=== PATIENT | male | born 1985 | race Caucasian/White ===

== ENCOUNTER 2016-12-24 13:22 | Emergency (ER) | payer OTHER ==
[~2016-12-24] VITALS: Ht 180.3 cm; Wt 114.3 kg
[~2016-12-24 13:22] MED LIST: BACTRIM,SEPT1 TABLET PO; DILAUDID2 MG PO; DILAUDID4 MG PO; ENDOCET 5-3251 EACH PO; FENOFIBRATE145 M1 PO; FENOFIBRATE160 M1 PO; HYDROCODON-ACE1 EACH; IBUPROFEN400 MG PO; INDOCIN25 MG PO; KEFLEX500 MG PO; METHYLPREDNISOLO4 M1; MOTRIN800 MG PO; NAPROSYN500 MG PO; NICOTINE PATCH1 EAC1 TD; NICOTINE PATCH1 EAC2 TD; NOHOMEMEDS; NORCO 10/3251 TABLET PO; OXYCODONE HCL5 MG PO; PEN-VEE K,VEET250 MG PO; PERCOCET 5/31 TABLET PO; PRAVACHOL40 MG PO; PROTONIX40 MG PO; SUCRALFATE1 GM/10 ML PO; TRANSDERM-SCO1 PATCH TD; TYLENOL WITH C1 EACH PO; ZOFRAN ODT4 MG PO
[2016-12-24 14:09] LABS: MCH 30.4 PG (29.0-34.0); MCHC 34.8 G/DL (30.0-36.0); MCV 87.5 FL (86-99); MEAN PLAT.VOLUME 11.3 uM^3 (9.0-12.4); PLATELET COUNT 108 K/uL (156-360); RBC DIS.WIDTH-SD 40.9 % (39-53); RED BLOOD COUNT 5.03 M/uL (4.00-5.50); WHITE BLOOD COUNT 10.9 K/uL (4.1-10.2)
[2016-12-24 14:19] LABS: CHLORIDE 102 mEq/L (99-109); POTASSIUM 3.9 mEq/L (3.7-5.4); SODIUM 138 mEq/L (136-147)
[2016-12-24 14:21] LABS: GLUCOSE 99 mg/dL (70-99)
[2016-12-24 14:22] LABS: ANION GAP 12 MEQ/L (2-14)
[2016-12-24 14:23] LABS: TOTAL BILIRUBIN 1.1 mg/dL (0.0-1.0)
[2016-12-24 14:25] LABS: ALKALINE PHOSPHATASE 92 IU/L (3-129); GFR ESTIMATE (CALCULATED) > 59 mL/min/
[2016-12-24 14:26] LABS: UREA NITROGEN (BUN) 11 mg/dL (9-23)
[2016-12-24 14:28] LABS: LIPASE 26 U/L (1.0-51.0)
[2016-12-24 18:55] LABS: ADD MIUA? YES; BILIRUBIN NEGATIVE; BLOOD NEGATIVE; COLOR DK YELLOW ((YELLOW)); GLUCOSE (STRIP) NEGATIVE; KETONES NEGATIVE; LEUKOCYTES NEGATIVE; NITRITE NEGATIVE; PH, URINE 5.5 (5-8); PROTEIN (STRIP) NEGATIVE; SPECIFIC GRAVITY 1.024 (1.000-1.030); UROBILINOGEN 0.2 MG/DL (0.2-1.0)
[2016-12-24 19:05] LABS: BACTERIA NONE SEEN /HPF; EPITHELIAL CELLS NONE SEEN /HPF; HYALINE CASTS 0-5 /LPF; MUCUS 4+ /LPF; RED BLOOD CELLS 0-5 /HPF (0-5); UCUL ADDED? NO; WHITE BLOOD CELLS 0-5 /HPF (0-5)
[2016-12-24] MEDS ORDERED: BENTYL20 MG PO (20:38)
[2016-12-24] MEDS ORDERED: PHENERGAN25 MG PR (20:38)
[2016-12-24] MEDS ORDERED: REGLAN10 MG PO (20:46)
[2016-12-24 21:50] VITALS: BP 112/78
== END 2016-12-24 21:51 | disposition home or self-care (01) ==
LOC: EME 13:22
DX: R10.13 Epigastric pain (principal); K85.90 Acute pancreatitis without necrosis or infection, unspecified; R11.0 Nausea; Z87.891 Personal history of nicotine dependence
CPT/HCPCS: 76705; 80053; 81003; 83690; 85027; 99281; 99285; J1885; J2405; J2765; J3010; J7030

== ENCOUNTER → 2017-01-02 | Outpatient (CLI) | payer OTHER ==
[~2017-01-02] VITALS: Ht 182.9 cm; Wt 108.9 kg
[~2017-01-02] MED LIST changes: +BENTYL20 MG PO; +PHENERGAN25 MG PR; +REGLAN10 MG PO
== END | disposition home or self-care (01) ==
LOC: AMB 10:26
DX: K52.9 Noninfective gastroenteritis and colitis, unspecified (principal); K51.40 Inflammatory polyps of colon without complications; K51.014 Ulcerative (chronic) pancolitis with abscess; B96.81 Helicobacter pylori [H. pylori] as the cause of diseases classified elsewhere; K51.814 Other ulcerative colitis with abscess; R10.30 Lower abdominal pain, unspecified; Z93.3 Colostomy status; E78.5 Hyperlipidemia, unspecified; K86.1 Other chronic pancreatitis; E55.9 Vitamin D deficiency, unspecified; Z83.3 Family history of diabetes mellitus; Z87.891 Personal history of nicotine dependence; Z88.5 Allergy status to narcotic agent
CPT/HCPCS: 88305; J2250; J3010

== ENCOUNTER 2017-06-15 17:45 | Inpatient (IN) | payer OTHER ==
[~2017-06-15] VITALS: Ht 180.3 cm; Wt 119.5 kg
[2017-06-15 18:46] LABS: EOSINOPHIL (%) 0.7 % (0-5); EOSINOPHIL COUNT 0.1 K/uL (0-0.3); HEMATOCRIT 41.2 % (38.0-50.0); IMMATURE GRANULOCYTE (%) 0.3 % (0.0-0.7); INSTRUMENT ABS NEUTROPHIL CT 11.7 K/uL; LYMPHOCYTE COUNT 1.2 K/uL (1.0-2.8); MCH 31.6 PG (29.0-34.0); MCHC 36.7 G/DL (30.0-36.0); MCV 86.2 FL (86-99); MEAN PLAT.VOLUME 12.6 uM^3 (9.0-12.4); MONOCYTE (%) 4.8 % (3-12); MONOCYTE COUNT 0.7 K/uL (0-0.8); NEUTROPHIL (%) 85.1 % (45-76); NEUTROPHIL COUNT 11.7 K/uL (1.8-6.4); PLATELET COUNT 123 K/uL (156-360); RBC DIS.WIDTH-CV 12.3 % (11.8-14.6); RBC DIS.WIDTH-SD 38.9 % (39-53); RED BLOOD COUNT 4.78 M/uL (4.00-5.50); WHITE BLOOD COUNT 13.8 K/uL (4.1-10.2)
[2017-06-15 19:35] LABS: CHLORIDE 105 mEq/L (99-109); POTASSIUM 4.2 mEq/L (3.7-5.4); SODIUM 137 mEq/L (136-147)
[2017-06-15 19:37] LABS: GLUCOSE 117 mg/dL (70-99)
[2017-06-15 19:38] LABS: ANION GAP 12 MEQ/L (2-14)
[2017-06-15 19:39] LABS: TOTAL BILIRUBIN 0.7 mg/dL (0.0-1.0)
[2017-06-15 19:40] LABS: ALKALINE PHOSPHATASE 80 IU/L (3-129)
[2017-06-15 19:41] LABS: GFR ESTIMATE (CALCULATED) > 59 mL/min/
[2017-06-15 19:42] LABS: UREA NITROGEN (BUN) 13 mg/dL (9-23)
[2017-06-15 19:44] LABS: LIPASE 58 U/L (1.0-51.0)
[2017-06-15 20:45] LABS: ADD MIUA? NO; BILIRUBIN NEGATIVE; BLOOD NEGATIVE; COLOR YELLOW ((YELLOW)); GLUCOSE (STRIP) NEGATIVE; KETONES NEGATIVE; LEUKOCYTES NEGATIVE; NITRITE NEGATIVE; PROTEIN (STRIP) NEGATIVE; SPECIFIC GRAVITY 1.029 (1.000-1.030); UCUL ADDED? NO; UROBILINOGEN 0.2 MG/DL (0.2-1.0)
[2017-06-16] VITALS (7 sets, daily range): BP systolic 122–141; BP diastolic 65–84
[2017-06-16 06:47] LABS: HEMATOCRIT 39.2 % (38.0-50.0); MCH 30.6 PG (29.0-34.0); MCHC 34.9 G/DL (30.0-36.0); MCV 87.5 FL (86-99); MEAN PLAT.VOLUME 12.6 uM^3 (9.0-12.4); PLATELET COUNT 105 K/uL (156-360); RBC DIS.WIDTH-CV 12.8 % (11.8-14.6); RBC DIS.WIDTH-SD 40.6 % (39-53); RED BLOOD COUNT 4.48 M/uL (4.00-5.50); WHITE BLOOD COUNT 12.6 K/uL (4.1-10.2)
[2017-06-16 07:09] LABS: HDL CHOLESTEROL 21 MG/DL (Desirable>=40); NON-HDL CHOLESTEROL 151 mg/dL (Desirable<160); TOTAL CHOLESTEROL 172 mg/dL (Desirable<200); TRIGLYCERIDES 651 MG/DL (Normal: <150)
[2017-06-16 07:10] LABS: ANION GAP 6 MEQ/L (2-14); CHLORIDE 103 MEQ/L (99-109); GFR ESTIMATE (CALCULATED) > 59 mL/min/; GLUCOSE 97 mg/dL (70-99); POTASSIUM 3.9 MEQ/L (3.7-5.4); SAMPLE HEMOLYSIS CHECK 1; SAMPLE ICTERIC CHECK 0; SAMPLE LIPEMIA CHECK 1; SODIUM 135 MEQ/L (136-147); UREA NITROGEN (BUN) 9 mg/dL (9-23)
[2017-06-17 03:46] VITALS: BP 128/84
[2017-06-17 08:15] VITALS: BP 132/73
[2017-06-17 14:55] VITALS: BP 142/75
[2017-06-17 23:23] VITALS: BP 130/79
[2017-06-18 08:47] VITALS: BP 114/70
[2017-06-18] MEDS ORDERED: ENDOCET 5-3251 EACH PO (12:06)
== END 2017-06-18 12:38 | disposition home or self-care (01) | DRG 440 ==
LOC: EME 17:45 → 2EAST 22:37 → EDOF 22:37 → ENRESERV 22:39 → 2EAST 06-16 00:16
PROVIDERS: Hospitalist; Physician Assistant Medical
DX: K85.90 Acute pancreatitis without necrosis or infection, unspecified (principal); R63.0 Anorexia; Z87.891 Personal history of nicotine dependence; E78.1 Pure hyperglyceridemia; K86.1 Other chronic pancreatitis; G89.29 Other chronic pain; M54.5 Low back pain; Z91.19 Patient's noncompliance with other medical treatment and regimen; Z86.73 Personal history of transient ischemic attack (TIA), and cerebral infarction without residual deficits; Z68.36 Body mass index [BMI] 36.0-36.9, adult
CPT/HCPCS: 74177; 80048; 80053; 80061; 81003; 83605; 83690; 85025; 85027; 99281; 99285; J1170; J1650; J1885; J2270; J2405; J3010; J7030; J7040; S0028

== ENCOUNTER 2018-03-03 06:40 | Inpatient (IN) | payer OTHER ==
[~2018-03-03] VITALS: Ht 182.9 cm; Wt 121.0 kg
[2018-03-03 07:43] LABS: HEMATOCRIT 41.3 % (38.0-50.0); HEMOGLOBIN 15.8 G/DL (12.5-16.6); MCH 32.4 PG (29.0-34.0); MCHC 38.3 G/DL (30.0-36.0); MCV 84.8 FL (86-99); PLATELET COUNT 168 K/uL (156-360); RBC DIS.WIDTH-CV 13.3 % (11.8-14.6); RBC DIS.WIDTH-SD 41.1 % (39-53); RED BLOOD COUNT 4.87 M/uL (4.00-5.50); WHITE BLOOD COUNT 12.5 K/uL (4.1-10.2)
[2018-03-03 09:38] LABS: APPEARANCE CLEAR ((CLEAR)); BILIRUBIN NEGATIVE; BLOOD NEGATIVE; COLOR YELLOW ((YELLOW)); GLUCOSE (STRIP) NEGATIVE; KETONES NEGATIVE; LEUKOCYTES NEGATIVE; NITRITE NEGATIVE; PROTEIN (STRIP) NEGATIVE; SPECIFIC GRAVITY 1.041 (1.000-1.030); UCUL ADDED? NO; UROBILINOGEN 0.2 MG/DL (0.2-1.0)
[2018-03-03 10:02] LABS: ALBUMIN 4.6 G/DL (3.2-4.8); ALKALINE PHOSPHATASE 59 IU/L (3-129); ALT (GPT) 27 IU/L (3-49); CHLORIDE 101 MEQ/L (99-109); CREATININE 1.1 MG/DL (0.6-1.3); GFR ESTIMATE (CALCULATED) > 59 mL/min/ (58.99-99999); GLUCOSE 100 mg/dL (70-99); LIPASE 104 U/L (1.0-51.0); SODIUM 129 MEQ/L (136-147); TOTAL BILIRUBIN 0.7 MG/DL (0.0-1.0); TOTAL PROTEIN 7.3 G/DL (6.4-8.3); UREA NITROGEN (BUN) 12 mg/dL (9-23)
[2018-03-03 10:04] LABS: POTASSIUM 7.4 MEQ/L (3.7-5.4)
[2018-03-03 10:05] LABS: AST (GOT) 71 IU/L (2-34)
[2018-03-03] MEDS ORDERED: ZOFRAN8 MG PO (11:48)
[2018-03-03] MEDS ORDERED: TIGER BALM MUSC57 GM TP (11:49)
[2018-03-03 12:33] LABS: HDL CHOLESTEROL 17 MG/DL (Desirable>=40); NON-HDL CHOLESTEROL 345 mg/dL (Desirable<160); TOTAL CHOLESTEROL 362 mg/dL (Desirable<200); TRIGLYCERIDES 2506 MG/DL (Normal: <150)
[2018-03-03 12:48] VITALS: BP 133/80
[2018-03-03 17:13] VITALS: BP 131/78
[2018-03-03 19:38] VITALS: BP 126/70
[2018-03-03 23:19] VITALS: BP 135/75
[2018-03-04 03:57] VITALS: BP 131/76
[2018-03-04 06:32] LABS: HEMATOCRIT 40.3 % (38.0-50.0); MCH 29.6 PG (29.0-34.0); MCHC 34.2 G/DL (30.0-36.0); MCV 86.5 FL (86-99); PLATELET COUNT 122 K/uL (156-360); RBC DIS.WIDTH-CV 13.4 % (11.8-14.6); RBC DIS.WIDTH-SD 42.2 % (39-53); RED BLOOD COUNT 4.66 M/uL (4.00-5.50)
[2018-03-04 06:34] LABS: HEMOGLOBIN 13.8 G/DL (12.5-16.6)
[2018-03-04 06:57] LABS: ALBUMIN 3.6 G/DL (3.2-4.8); ALKALINE PHOSPHATASE 65 IU/L (3-129); ALT (GPT) 14 IU/L (3-49); CHLORIDE 99 MEQ/L (99-109); GFR ESTIMATE (CALCULATED) > 59 mL/min/ (58.99-99999); GLUCOSE 84 mg/dL (70-99); SODIUM 134 MEQ/L (136-147); UREA NITROGEN (BUN) 9 mg/dL (9-23)
[2018-03-04 07:00] LABS: AST (GOT) 14 IU/L (2-34); POTASSIUM 3.7 MEQ/L (3.7-5.4); TOTAL BILIRUBIN 1.2 MG/DL (0.0-1.0); TOTAL PROTEIN 6.1 G/DL (6.4-8.3)
[2018-03-04 08:12] VITALS: BP 136/65
[2018-03-04 11:43] VITALS: BP 136/70
[2018-03-04 16:05] VITALS: BP 133/68
[2018-03-04 19:28] VITALS: BP 129/75
[2018-03-04 23:33] VITALS: BP 139/77
[2018-03-05 03:32] VITALS: BP 122/76
[2018-03-05 07:46] VITALS: BP 123/70
[2018-03-05 08:22] LABS: HEMATOCRIT 38.1 % (38.0-50.0); HEMOGLOBIN 12.6 G/DL (12.5-16.6); MCHC 33.1 G/DL (30.0-36.0); MCV 87.6 FL (86-99); PLATELET COUNT 118 K/uL (156-360); RBC DIS.WIDTH-CV 13.2 % (11.8-14.6); RBC DIS.WIDTH-SD 42.4 % (39-53); RED BLOOD COUNT 4.35 M/uL (4.00-5.50); WHITE BLOOD COUNT 10.1 K/uL (4.1-10.2)
[2018-03-05 09:00] LABS: ALBUMIN 3.6 G/DL (3.2-4.8); ALKALINE PHOSPHATASE 70 IU/L (3-129); ALT (GPT) 13 IU/L (3-49); AST (GOT) 12 IU/L (2-34); CHLORIDE 102 MEQ/L (99-109); CREATININE 1.1 MG/DL (0.6-1.3); GFR ESTIMATE (CALCULATED) > 59 mL/min/ (58.99-99999); GLUCOSE 85 mg/dL (70-99); LIPASE 22 U/L (1.0-51.0); POTASSIUM 3.9 MEQ/L (3.7-5.4); SODIUM 135 MEQ/L (136-147); TOTAL BILIRUBIN 1.4 MG/DL (0.0-1.0); TOTAL PROTEIN 6.2 G/DL (6.4-8.3); UREA NITROGEN (BUN) 13 mg/dL (9-23)
[2018-03-05 16:23] VITALS: BP 128/59
[2018-03-06 00:23] VITALS: BP 132/74
[2018-03-06 07:18] VITALS: BP 114/65
[2018-03-06 10:10] LABS: CHLORIDE 101 MEQ/L (99-109); GFR ESTIMATE (CALCULATED) > 59 mL/min/ (58.99-99999); GLUCOSE 86 mg/dL (70-99); POTASSIUM 4.2 MEQ/L (3.7-5.4); SODIUM 136 MEQ/L (136-147); TRIGLYCERIDES 230 MG/DL (Normal: <150); UREA NITROGEN (BUN) 11 mg/dL (9-23)
[2018-03-06 10:38] LABS: BASOPHIL (%) 0.6 % (0-1); EOSINOPHIL (%) 2.4 % (0-5); EOSINOPHIL COUNT 0.2 K/uL (0-0.3); HEMATOCRIT 40.2 % (38.0-50.0); HEMOGLOBIN 13.4 G/DL (12.5-16.6); IMMATURE GRANULOCYTE (%) 0.6 % (0.0-0.7); LYMPHOCYTE (%) 12.5 % (15-42); LYMPHOCYTE COUNT 0.9 K/uL (1.0-2.8); MCH 29.3 PG (29.0-34.0); MCHC 33.3 G/DL (30.0-36.0); MONOCYTE (%) 6.8 % (3-12); MONOCYTE COUNT 0.5 K/uL (0-0.8); NEUTROPHIL (%) 77.1 % (45-76); NEUTROPHIL COUNT 5.6 K/uL (1.8-6.4); PLATELET COUNT 140 K/uL (156-360); RBC DIS.WIDTH-CV 13.1 % (11.8-14.6); RBC DIS.WIDTH-SD 42.3 % (39-53); RED BLOOD COUNT 4.57 M/uL (4.00-5.50); WHITE BLOOD COUNT 7.2 K/uL (4.1-10.2)
[2018-03-06 15:20] VITALS: BP 136/75
[2018-03-07 01:29] VITALS: BP 122/62
[2018-03-07 05:59] LABS: HEMATOCRIT 38.8 % (38.0-50.0); HEMOGLOBIN 13.1 G/DL (12.5-16.6); MCH 29.3 PG (29.0-34.0); MCHC 33.8 G/DL (30.0-36.0); MCV 86.8 FL (86-99); PLATELET COUNT 174 K/uL (156-360); RBC DIS.WIDTH-CV 12.8 % (11.8-14.6); RBC DIS.WIDTH-SD 40.7 % (39-53); RED BLOOD COUNT 4.47 M/uL (4.00-5.50); WHITE BLOOD COUNT 7.7 K/uL (4.1-10.2)
[2018-03-07 06:26] LABS: CHLORIDE 100 MEQ/L (99-109); CREATININE 0.9 MG/DL (0.6-1.3); GFR ESTIMATE (CALCULATED) > 59 mL/min/ (58.99-99999); GLUCOSE 83 mg/dL (70-99); POTASSIUM 4.2 MEQ/L (3.7-5.4); SODIUM 136 MEQ/L (136-147); UREA NITROGEN (BUN) 12 mg/dL (9-23)
[2018-03-07 08:42] VITALS: BP 143/80
[2018-03-07] MEDS ORDERED: GEMFIBROZIL600 MG PO ×2 (10:35→10:44)
[2018-03-07] MEDS ORDERED: OXYCODONE HCL5 MG PO (10:35)
[2018-03-07] MEDS ORDERED: POLYETHYLENE GL17 GM PO (10:35)
[2018-03-07] MEDS ORDERED: ZOFRAN8 MG PO (10:35)
[2018-03-07] MEDS ORDERED: FENOFIBRATE145 M1 PO (10:35)
[2018-03-07] MEDS ORDERED: NICODERM CQ1 EAC1 TD (10:47)
== END 2018-03-07 12:15 | disposition home or self-care (01) | DRG 440 ==
LOC: EME 06:40 → EDOF 11:15 → 5EAST 11:15 → ENRESERV 11:16 → 5EAST 12:30 → ENPENDDIS 03-07 → 5EAST 03-07 12:15
PROVIDERS: Hospitalist; Internal Medicine; Internal Medicine Gastroenterology; Physician Assistant
DX: K85.80 Other acute pancreatitis without necrosis or infection (principal); K86.1 Other chronic pancreatitis; E78.1 Pure hyperglyceridemia; K86.81 Exocrine pancreatic insufficiency; E83.51 Hypocalcemia; F17.200 Nicotine dependence, unspecified, uncomplicated; Z91.14 Patient's other noncompliance with medication regimen; E66.9 Obesity, unspecified; Z68.36 Body mass index [BMI] 36.0-36.9, adult; E78.5 Hyperlipidemia, unspecified; M54.5 Low back pain; G89.29 Other chronic pain; Z87.19 Personal history of other diseases of the digestive system; Z88.5 Allergy status to narcotic agent; Z86.73 Personal history of transient ischemic attack (TIA), and cerebral infarction without residual deficits; Z82.49 Family history of ischemic heart disease and other diseases of the circulatory system; Z83.3 Family history of diabetes mellitus
CPT/HCPCS: 74177; 80047; 80048; 80053; 80061; 81003; 83605; 83690; 84132 91; 84478; 85025; 85027; 93005; 99281; 99285; J1170; J1650; J1885; J2405; J3010; J7030; J7120